=== PATIENT | female | born 1950 | race Caucasian/White ===

== ENCOUNTER 2017-06-10 12:38 | Observation (INO) | payer MEDICARE, OTHER ==
[~2017-06-10] VITALS: Ht 162.6 cm; Wt 70.2 kg
[~2017-06-10 12:38] MED LIST: ACET500 PO; ALEN70 PO; AMIO200 PO; ASPI81CH PO; ASPI81EC PO; ATEN50 PO; ATOR40TA PO; ATOR80 PO; BUPR150T2 PO; CEFTRIAXONE IV; CEPH500 PO; CHOL10002 PO; CLOP75 PO; COLE625 PO; CYCL10 PO; Cartia Xt240 MG PO; Ceftriaxon1 GM/50 ML IV; DIGO.25 PO; DILT120 PO; DOCU100 PO; Desyrel150 MG PO; Desyrel50 MG PO; ETOD400 PO; ETOD500 PO; EZET10 PO; FLUSAL1005 INH; FLUSAL2505 INH; HYDACE5 PO; HYDACE5325 PO; LISI20 PO; LISI5 PO; METO100ER PO; METO50ER PO; MONT10T PO; MULT50FEL PO; NAPR250 PO; NIAC500 PO; OMEP20ER PO; OMEPRAZOLE MAGN20 MG PO; POLY500 PO; PREG25 PO; PROAIR RESPICL90 MCG INH; Ranitidine HCl150 M1 PO; TRAZ100 PO; TRAZ150T57 PO; TRAZ50 PO; WARF2 PO; XARELTO20 MG PO
[2017-06-10 13:57] LABS: BASOPHILS ABSOLUTE AUTO 0.03 K/mm3 (0.00-0.23); BASOPHILS PERCENT AUTO 0 % (0-2); EOSINOPHILS PERCENT AUTO 0 % (0-6); Hematocrit 43.8 % (33.0-51.0); Hemoglobin 14.3 g/dL (11.5-16.0); IMMATURE GRAN ABSOLUTE AUTO 0.04 K/mm3 (0.00-0.10); IMMATURE GRAN PERCENT AUTO 0 % (0-1); LYMPHOCYTES ABSOLUTE AUTO 1.09 K/mm3 (0.84-5.20); LYMPHOCYTES PERCENT AUTO 11 % (21-46); MONOCYTES PERCENT AUTO 10 % (4-13); Mean Corpuscular HGB 28.2 pg (26.0-34.0); Mean Corpuscular HGB Conc 32.6 g/dL (31.5-36.5); Mean Corpuscular Volume 86 fL (80-100); Mean Platelet Volume 9.8 fL (9.1-12.4); NEUTROPHILS ABSOLUTE AUTO 8.27 K/mm3 (1.96-9.15); NEUTROPHILS PERCENT AUTO 79 % (41-73); Platelet Count 236 K/mm3 (150-400); RDW Coefficient Variation 13.9 % (11.7-14.2); RDW Standard Deviation 44.4 fL (35.1-46.3); Red Blood Cell Count 5.07 M/mm3 (3.80-5.20); White Blood Cell Count 10.43 K/mm3 (4.00-11.30)
[2017-06-10 14:17] LABS: Alanine Aminotransfer (ALT/SGP 10 U/L (12-78); Albumin, Blood 3.1 g/dL (3.4-5.0); Albumin/Globulin Ratio 0.6 (0.8-1.8); Alk Phos 111 U/L (50-136); Anion Gap 9 mmol/L (6-16); Aspartate Aminotrans (AST/SGOT 18 U/L (12-37); Bilirubin, Total 1.2 mg/dL (0.1-1.0); Blood Urea Nitrogen 22 mg/dL (8-24); Bun/Creatinine Ratio 27.5 (12.0-20.0); CO2, Blood 28 mmol/L (21-32); Calcium, Blood 8.9 mg/dL (8.5-10.1); Chloride, Blood 99 mmol/L (98-108); Glomerular Filtration Rate >60 (60-); Glucose, Blood 113 mg/dL (70-99); Potassium, Blood 3.3 mmol/L (3.5-5.5); Sodium, Blood 136 mmol/L (136-145); Total Protein, Blood 8.1 g/dL (6.4-8.2)
[2017-06-10] MEDS ORDERED: SERT100 PO (14:44)
[2017-06-10] MEDS ORDERED: COMBIVENT RESPIM4 GM INH (14:45)
[2017-06-10 16:07] LABS: Troponin I <0.015 ng/mL (0.000-0.040)
[2017-06-10 17:48] LABS: Magnesium, Blood 1.4 mg/dL (1.6-2.4)
[2017-06-10 18:09] LABS: Source, Urine Clean Catch
[2017-06-10 18:18] LABS: Appearance, Urine Clear (Clear); Bilirubin, Urine Neg (Neg); Blood, Urine 5+ (Neg); Color, Urine Yellow (P-Yellow); Glucose Qualitative, Urine Neg (Neg); Ketones, Urine 2+ (Neg); Leukocyte Esterase, Urine Neg (Neg); Nitrite, Urine Neg (Neg); Protein, Urine 3+ (Neg); Urobilinogen, Urine NORM (Normal)
[2017-06-10 18:45] LABS: Squamous Epithelial Cells Few /hpf (Few)
[2017-06-10 18:46] LABS: Bacteria Few /hpf; Hyaline Casts 0-2 /lpf (0-2)
[2017-06-11 04:48] LABS: BASOPHILS ABSOLUTE AUTO 0.02 K/mm3 (0.00-0.23); BASOPHILS PERCENT AUTO 0 % (0-2); EOSINOPHILS ABSOLUTE AUTO 0.04 K/mm3 (0.00-0.68); EOSINOPHILS PERCENT AUTO 1 % (0-6); Hemoglobin 12.7 g/dL (11.5-16.0); IMMATURE GRAN ABSOLUTE AUTO 0.02 K/mm3 (0.00-0.10); IMMATURE GRAN PERCENT AUTO 0 % (0-1); LYMPHOCYTES ABSOLUTE AUTO 1.35 K/mm3 (0.84-5.20); LYMPHOCYTES PERCENT AUTO 15 % (21-46); MONOCYTES ABSOLUTE AUTO 1.01 K/mm3 (0.16-1.47); MONOCYTES PERCENT AUTO 12 % (4-13); Mean Corpuscular HGB 28.2 pg (26.0-34.0); Mean Corpuscular HGB Conc 32.6 g/dL (31.5-36.5); Mean Corpuscular Volume 87 fL (80-100); Mean Platelet Volume 10.1 fL (9.1-12.4); NEUTROPHILS ABSOLUTE AUTO 6.37 K/mm3 (1.96-9.15); NEUTROPHILS PERCENT AUTO 72 % (41-73); Platelet Count 225 K/mm3 (150-400); RDW Coefficient Variation 13.9 % (11.7-14.2); RDW Standard Deviation 43.8 fL (35.1-46.3); White Blood Cell Count 8.81 K/mm3 (4.00-11.30)
[2017-06-11 05:09] LABS: Anion Gap 7 mmol/L (6-16); Blood Urea Nitrogen 21 mg/dL (8-24); Bun/Creatinine Ratio 31.2 (12.0-20.0); CO2, Blood 27 mmol/L (21-32); Calcium, Blood 7.9 mg/dL (8.5-10.1); Chloride, Blood 105 mmol/L (98-108); Creatinine, Blood 0.67 mg/dL (0.40-1.00); Glomerular Filtration Rate >60 (60-); Glucose, Blood 115 mg/dL (70-99); Potassium, Blood 3.2 mmol/L (3.5-5.5); Sodium, Blood 139 mmol/L (136-145); Troponin I <0.015 ng/mL (0.000-0.040)
[2017-06-11] MEDS ORDERED: HYDR1TAB94 PO (11:06)
[2017-06-11] MEDS ORDERED: METO25ER PO (11:15)
[2017-09-25] MEDS ORDERED: DILTIAZEM 24HR180 MG PO (14:49)
[2017-09-25] MEDS ORDERED: Advair Hfa 230-12 GM INH (14:49)
[2017-09-25] MEDS ORDERED: VITAMIN B122500 MC1 PO (14:50)
[2017-09-25] MEDS ORDERED: Vitamin D400 UNI1 PO (14:50)
[2018-02-03] MEDS ORDERED: METO25 PO (17:45)
[2018-02-03] MEDS ORDERED: Protonix40 M1 PO (17:47)
[2018-02-03] MEDS ORDERED: Allopurinol100 MG PO (17:51)
[2018-02-03] MEDS ORDERED: AZO CRANBERRY1 EAC1 PO (17:52)
[2018-02-03] MEDS ORDERED: Amiodarone HCl200 MG PO (17:53)
[2018-02-03] MEDS ORDERED: MAGCHL64ER PO (17:54)
[2018-02-03] MEDS ORDERED: HYDR10 PO (17:55)
[2018-02-03] MEDS ORDERED: ONDA4ODT MM (17:56)
[2018-02-03] MEDS ORDERED: PRED10 PO (17:57)
[2018-03-22] MEDS ORDERED: K-Dur20 MEQ PO (23:52)
[2018-04-03] MEDS ORDERED: VITAMIN D22000 UNIT PO (13:52)
[2018-04-03] MEDS ORDERED: MONT10T PO (13:53)
[2018-04-03] MEDS ORDERED: XARELTO20 MG PO (13:53)
[2018-04-03] MEDS ORDERED: SERT100 PO (13:53)
[2018-04-03] MEDS ORDERED: Prilosec Otc20 MG PO (13:53)
[2018-04-03] MEDS ORDERED: ALEN70 PO (13:54)
[2018-04-03] MEDS ORDERED: VITAMIN B122500 MCG PO (13:54)
[2018-04-03] MEDS ORDERED: PREG25 PO (13:54)
[2018-04-03] MEDS ORDERED: PROAIR RESPICL90 MCG INH (13:55)
[2018-04-03] MEDS ORDERED: Metoprolol Succ25 MG PO (13:55)
[2018-04-03] MEDS ORDERED: TRAZ150T57 PO (13:56)
[2018-04-03] MEDS ORDERED: ACET325 (13:56)
[2018-04-03] MEDS ORDERED: Pentoxifylline400 MG PO (13:56)
[2018-04-03] MEDS ORDERED: LOSA25 (13:57)
[2018-04-03] MEDS ORDERED: FURO20 PO (13:57)
[2018-04-03] MEDS ORDERED: Amiodarone HCl200 MG PO (13:57)
[2018-04-03] MEDS ORDERED: ATOR80 PO (13:57)
[2018-04-03] MEDS ORDERED: K-Dur20 MEQ PO (13:58)
[2018-04-03] MEDS ORDERED: ALLO100 PO (13:58)
== END 2017-06-11 11:38 | disposition home or self-care (01) ==
LOC: ER 12:38 → PCU 12:39 → ER 18:07 → PCU 20:00
PROVIDERS: Internal Medicine; Physician Assistant
DX: I48.91 Unspecified atrial fibrillation (principal); M54.9 Dorsalgia, unspecified; E87.1 Hypo-osmolality and hyponatremia; E83.42 Hypomagnesemia; J44.9 Chronic obstructive pulmonary disease, unspecified; I11.9 Hypertensive heart disease without heart failure; I73.9 Peripheral vascular disease, unspecified; Z87.891 Personal history of nicotine dependence; Z95.2 Presence of prosthetic heart valve; Z95.1 Presence of aortocoronary bypass graft; Z88.5 Allergy status to narcotic agent; Z88.8 Allergy status to other drugs, medicaments and biological substances; Z79.899 Other long term (current) drug therapy; Z79.01 Long term (current) use of anticoagulants; Z98.890 Other specified postprocedural states; Z23 Encounter for immunization
CPT/HCPCS: 36415; 71045; 80048; 80053; 81001; 83735; 84484; 85025; 93005; 93010; 94760; 96361; 96365; 96375; 96376; 99285; G0008; G0378; J3475; J7030; Q2038

== ENCOUNTER 2017-07-15 21:10 | Inpatient (IN) | payer MEDICARE, OTHER ==
[~2017-07-15] VITALS: Ht 160 cm; Wt 70.8 kg
[~2017-07-15 21:10] MED LIST changes: +COMBIVENT RESPIM4 GM INH; +HYDR1TAB94 PO; +METO25ER PO; +SERT100 PO
[2017-07-15 21:41] LABS: BASOPHILS ABSOLUTE AUTO 0.06 K/mm3 (0.00-0.23); BASOPHILS PERCENT AUTO 1 % (0-2); EOSINOPHILS ABSOLUTE AUTO 0.06 K/mm3 (0.00-0.68); EOSINOPHILS PERCENT AUTO 1 % (0-6); Hematocrit 40.7 % (33.0-51.0); Hemoglobin 12.6 g/dL (11.5-16.0); IMMATURE GRAN ABSOLUTE AUTO 0.03 K/mm3 (0.00-0.10); IMMATURE GRAN PERCENT AUTO 1 % (0-1); LYMPHOCYTES ABSOLUTE AUTO 1.61 K/mm3 (0.84-5.20); LYMPHOCYTES PERCENT AUTO 25 % (21-46); MONOCYTES ABSOLUTE AUTO 0.63 K/mm3 (0.16-1.47); MONOCYTES PERCENT AUTO 10 % (4-13); Mean Corpuscular HGB 27.6 pg (26.0-34.0); Mean Corpuscular Volume 89 fL (80-100); Mean Platelet Volume 10.6 fL (9.1-12.4); NEUTROPHILS ABSOLUTE AUTO 4.06 K/mm3 (1.96-9.15); NEUTROPHILS PERCENT AUTO 63 % (41-73); Platelet Count 258 K/mm3 (150-400); RDW Coefficient Variation 15.7 % (11.7-14.2); RDW Standard Deviation 50.5 fL (35.1-46.3); Red Blood Cell Count 4.57 M/mm3 (3.80-5.20); White Blood Cell Count 6.45 K/mm3 (4.00-11.30)
[2017-07-15 22:03] LABS: Alanine Aminotransfer (ALT/SGP 21 U/L (12-78); Albumin, Blood 3.2 g/dL (3.4-5.0); Albumin/Globulin Ratio 0.9 (0.8-1.8); Alk Phos 116 U/L (50-136); Anion Gap 11 mmol/L (6-16); Aspartate Aminotrans (AST/SGOT 24 U/L (12-37); Blood Urea Nitrogen 25 mg/dL (8-24); Bun/Creatinine Ratio 24.8 (12.0-20.0); CO2, Blood 24 mmol/L (21-32); Calcium, Blood 8.5 mg/dL (8.5-10.1); Chloride, Blood 106 mmol/L (98-108); Creatinine, Blood 1.01 mg/dL (0.40-1.00); Globulin, Blood 3.7 g/dL (2.2-4.0); Glomerular Filtration Rate 58 (60-); Glucose, Blood 169 mg/dL (70-99); Magnesium, Blood 1.8 mg/dL (1.6-2.4); Potassium, Blood 3.8 mmol/L (3.5-5.5); Sodium, Blood 141 mmol/L (136-145); Total Protein, Blood 6.9 g/dL (6.4-8.2); Troponin I <0.015 ng/mL (0.000-0.040)
[2017-07-15 22:47] LABS: International Normalized Ratio 1.45; Prothrombin Time Results 15.3 Sec (9.7-11.5)
[2017-07-16] MEDS ORDERED: XARELTO15 MG PO (00:32)
[2017-07-16 02:21] LABS: Source, Urine Catheter
[2017-07-16 02:28] LABS: Appearance, Urine Hazy (Clear); Bilirubin, Urine 1+ (Neg); Blood, Urine 5+ (Neg); Color, Urine Amber (P-Yellow); Glucose Qualitative, Urine Neg (Neg); Ketones, Urine 1+ (Neg); Leukocyte Esterase, Urine 1+ (Neg); Nitrite, Urine Neg (Neg); Protein, Urine 4+ (Neg); Specific Gravity, Urine 1.025 (1.003-1.022); Urobilinogen, Urine 1+ (Normal)
[2017-07-16 02:30] LABS: Amorphous Mod (0-Heavy); Bacteria Mod /hpf; Squamous Epithelial Cells Rare /hpf (Few); White Blood Cells, Urine 0-2 /hpf (0-5)
[2017-07-16 02:31] LABS: Hyaline Casts 0-2 /lpf (0-2)
[2017-07-16 03:49] LABS: BASOPHILS ABSOLUTE AUTO 0.05 K/mm3 (0.00-0.23); BASOPHILS PERCENT AUTO 1 % (0-2); EOSINOPHILS PERCENT AUTO 0 % (0-6); Hematocrit 41.2 % (33.0-51.0); IMMATURE GRAN ABSOLUTE AUTO 0.02 K/mm3 (0.00-0.10); IMMATURE GRAN PERCENT AUTO 0 % (0-1); LYMPHOCYTES ABSOLUTE AUTO 0.91 K/mm3 (0.84-5.20); LYMPHOCYTES PERCENT AUTO 14 % (21-46); MONOCYTES ABSOLUTE AUTO 0.25 K/mm3 (0.16-1.47); MONOCYTES PERCENT AUTO 4 % (4-13); Mean Corpuscular HGB 27.5 pg (26.0-34.0); Mean Corpuscular HGB Conc 31.6 g/dL (31.5-36.5); Mean Corpuscular Volume 87 fL (80-100); Mean Platelet Volume 11.7 fL (9.1-12.4); NEUTROPHILS ABSOLUTE AUTO 5.31 K/mm3 (1.96-9.15); NEUTROPHILS PERCENT AUTO 81 % (41-73); NRBC ABSOLUTE 0.02 K/mm3 (0.00-0.02); NRBC Auto 0.3 /100 WBC (0.0-0.2); Platelet Count 289 K/mm3 (150-400); RDW Coefficient Variation 15.8 % (11.7-14.2); RDW Standard Deviation 49.7 fL (35.1-46.3); Red Blood Cell Count 4.72 M/mm3 (3.80-5.20); White Blood Cell Count 6.54 K/mm3 (4.00-11.30)
[2017-07-16 05:35] LABS: Anion Gap 12 mmol/L (6-16); Blood Urea Nitrogen 26 mg/dL (8-24); Bun/Creatinine Ratio 30.6 (12.0-20.0); CO2, Blood 22 mmol/L (21-32); Calcium, Blood 8.8 mg/dL (8.5-10.1); Chloride, Blood 106 mmol/L (98-108); Creatinine, Blood 0.85 mg/dL (0.40-1.00); Glomerular Filtration Rate >60 (60-); Glucose, Blood 153 mg/dL (70-99); Magnesium, Blood 2.1 mg/dL (1.6-2.4); Potassium, Blood 4.1 mmol/L (3.5-5.5); Sodium, Blood 140 mmol/L (136-145)
[2017-07-17] MEDS ORDERED: Pacerone100 MG PO (12:52)
[2017-07-17] MEDS ORDERED: FURO20 PO (12:53)
[2017-09-25] MEDS ORDERED: Advair Hfa 230-12 GM INH (14:49)
[2017-09-25] MEDS ORDERED: DILTIAZEM 24HR180 MG PO (14:49)
[2017-09-25] MEDS ORDERED: Vitamin D400 UNI1 PO (14:50)
[2017-09-25] MEDS ORDERED: VITAMIN B122500 MC1 PO (14:50)
[2018-02-03] MEDS ORDERED: METO25 PO (17:45)
[2018-02-03] MEDS ORDERED: Protonix40 M1 PO (17:47)
[2018-02-03] MEDS ORDERED: Allopurinol100 MG PO (17:51)
[2018-02-03] MEDS ORDERED: AZO CRANBERRY1 EAC1 PO (17:52)
[2018-02-03] MEDS ORDERED: Amiodarone HCl200 MG PO (17:53)
[2018-02-03] MEDS ORDERED: MAGCHL64ER PO (17:54)
[2018-02-03] MEDS ORDERED: HYDR10 PO (17:55)
[2018-02-03] MEDS ORDERED: ONDA4ODT MM (17:56)
[2018-02-03] MEDS ORDERED: PRED10 PO (17:57)
[2018-03-22] MEDS ORDERED: K-Dur20 MEQ PO (23:52)
[2018-04-03] MEDS ORDERED: VITAMIN D22000 UNIT PO (13:52)
[2018-04-03] MEDS ORDERED: XARELTO20 MG PO (13:53)
[2018-04-03] MEDS ORDERED: MONT10T PO (13:53)
[2018-04-03] MEDS ORDERED: SERT100 PO (13:53)
[2018-04-03] MEDS ORDERED: Prilosec Otc20 MG PO (13:53)
[2018-04-03] MEDS ORDERED: ALEN70 PO (13:54)
[2018-04-03] MEDS ORDERED: PREG25 PO (13:54)
[2018-04-03] MEDS ORDERED: VITAMIN B122500 MCG PO (13:54)
[2018-04-03] MEDS ORDERED: PROAIR RESPICL90 MCG INH (13:55)
[2018-04-03] MEDS ORDERED: Metoprolol Succ25 MG PO (13:55)
[2018-04-03] MEDS ORDERED: ACET325 (13:56)
[2018-04-03] MEDS ORDERED: TRAZ150T57 PO (13:56)
[2018-04-03] MEDS ORDERED: Pentoxifylline400 MG PO (13:56)
[2018-04-03] MEDS ORDERED: ATOR80 PO (13:57)
[2018-04-03] MEDS ORDERED: FURO20 PO (13:57)
[2018-04-03] MEDS ORDERED: Amiodarone HCl200 MG PO (13:57)
[2018-04-03] MEDS ORDERED: LOSA25 (13:57)
[2018-04-03] MEDS ORDERED: K-Dur20 MEQ PO (13:58)
[2018-04-03] MEDS ORDERED: ALLO100 PO (13:58)
== END 2017-07-17 15:49 | disposition home or self-care (01) | DRG 308 ==
LOC: ER 21:10 → ICUW 23:55 → ICUE 23:55 → PCU 07-16 20:27
PROVIDERS: Emergency Medicine; Internal Medicine
PROC: 5A2204Z Restoration of Cardiac Rhythm, Single (ICD-10-PCS; principal; 2017-07-16)
DX: I48.91 Unspecified atrial fibrillation (principal); I50.31 Acute diastolic (congestive) heart failure; J96.01 Acute respiratory failure with hypoxia; J44.9 Chronic obstructive pulmonary disease, unspecified; Z95.1 Presence of aortocoronary bypass graft; I11.0 Hypertensive heart disease with heart failure; I25.10 Atherosclerotic heart disease of native coronary artery without angina pectoris; I73.9 Peripheral vascular disease, unspecified; I35.0 Nonrheumatic aortic (valve) stenosis; Z95.2 Presence of prosthetic heart valve; Z88.5 Allergy status to narcotic agent; Z88.8 Allergy status to other drugs, medicaments and biological substances; Z79.01 Long term (current) use of anticoagulants; Z79.83 Long term (current) use of bisphosphonates; Z79.899 Other long term (current) drug therapy; Z87.891 Personal history of nicotine dependence
CPT/HCPCS: 51702; 51703; 71046; 80048; 80053; 81001; 83735; 83880; 84484; 85025; 85610; 85730; 87086; 93005; 93010; 94640; 94660; 94762; 96374; 96375; 96376; 99291; 99292; C1751; J0282; J1940; J2250; J2930; J3010; J3475; J7060

== ENCOUNTER → 2017-07-23 | Outpatient (CLI) | payer MEDICARE, OTHER ==
[~2017-07-23] MED LIST changes: +ALBU90OI6 INH; +FURO20 PO; -PROAIR RESPICL90 MCG INH; +Pacerone100 MG PO
[2017-07-23 18:20] LABS: Blood, Urine 5+ (Neg); Glucose Qualitative, Urine Neg (Neg); Ketones, Urine 1+ (Neg); Leukocyte Esterase, Urine 2+ (Neg); Nitrite, Urine Neg (Neg); Protein, Urine 3+ (Neg); Urobilinogen, Urine 1+ (Normal)
[2017-07-23 18:41] LABS: Appearance, Urine Clear (Clear); Color, Urine Yellow (P-Yellow)
[2017-07-23 18:43] LABS: Bacteria Many /hpf; Squamous Epithelial Cells Mod /hpf (Few)
== END ==
LOC: LAB 16:15 → LAB SHORT 16:15
PROVIDERS: Family Medicine
DX: R35.0 Frequency of micturition (principal)
CPT/HCPCS: 81001; 87077; 87086; 87186

== ENCOUNTER 2017-10-05 09:48 | Day surgery (SDC) | payer MEDICARE, OTHER ==
[~2017-10-05 09:48] MED LIST changes: +Advair Hfa 230-12 GM INH; +DILTIAZEM 24HR180 MG PO; +VITAMIN B122500 MC1 PO; +Vitamin D400 UNI1 PO
[2017-10-05] MEDS ORDERED: ATOR80 PO (10:22)
[2017-10-05] MEDS ORDERED: DILT180 PO (10:22)
[2017-10-05] MEDS ORDERED: ACET500 PO (10:23)
== END 2017-10-05 22:58 | disposition home or self-care (01) ==
LOC: ORSCMMR 09:48 → ORD 11:15 → ORSCMMR 11:15
PROVIDERS: Surgery
PROC: 0WUF0JZ Supplement Abdominal Wall with Synthetic Substitute, Open Approach (ICD-10-PCS; principal; 2017-10-05 11:15)
DX: K43.9 Ventral hernia without obstruction or gangrene (principal); J44.9 Chronic obstructive pulmonary disease, unspecified; Z99.81 Dependence on supplemental oxygen; E78.5 Hyperlipidemia, unspecified; K21.9 Gastro-esophageal reflux disease without esophagitis; I10 Essential (primary) hypertension; Z87.891 Personal history of nicotine dependence; Z79.01 Long term (current) use of anticoagulants; Z79.899 Other long term (current) drug therapy
CPT/HCPCS: C1781; J0690; J1100; J2250; J2370; J2405; J2710; J3010; J7120

== ENCOUNTER → 2018-01-24 | Outpatient (CLI) | payer MEDICARE, OTHER ==
[~2018-01-24] MED LIST changes: +Cleocin HCl300 MG PO; +DILT180 PO
== END | disposition home or self-care (01) ==
LOC: LAB SHORT 16:07 → LAB EV 16:07
DX: N39.0 Urinary tract infection, site not specified (principal)
CPT/HCPCS: 87086

== ENCOUNTER 2018-01-26 19:09 | Emergency (ER) | payer MEDICARE ==
[~2018-01-26] VITALS: Ht 162.6 cm; Wt 54.4 kg
[~2018-01-26 19:09] MED LIST changes: -Cleocin HCl300 MG PO
[2018-01-26 21:27] LABS: BASOPHILS ABSOLUTE AUTO 0.02 K/mm3 (0.00-0.23); BASOPHILS PERCENT AUTO 0 % (0-2); EOSINOPHILS PERCENT AUTO 0 % (0-6); Hematocrit 38.2 % (33.0-51.0); Hemoglobin 13.2 g/dL (11.5-16.0); IMMATURE GRAN ABSOLUTE AUTO 0.06 K/mm3 (0.00-0.10); IMMATURE GRAN PERCENT AUTO 0 % (0-1); LYMPHOCYTES ABSOLUTE AUTO 1.18 K/mm3 (0.84-5.20); LYMPHOCYTES PERCENT AUTO 8 % (21-46); MONOCYTES PERCENT AUTO 8 % (4-13); Mean Corpuscular HGB 31.1 pg (26.0-34.0); Mean Corpuscular HGB Conc 34.6 g/dL (31.5-36.5); Mean Corpuscular Volume 90 fL (80-100); Mean Platelet Volume 9.9 fL (9.1-12.4); NEUTROPHILS ABSOLUTE AUTO 12.01 K/mm3 (1.96-9.15); NEUTROPHILS PERCENT AUTO 84 % (41-73); Platelet Count 315 K/mm3 (150-400); RDW Coefficient Variation 13.8 % (11.7-14.2); RDW Standard Deviation 45.8 fL (35.1-46.3); Red Blood Cell Count 4.24 M/mm3 (3.80-5.20); White Blood Cell Count 14.37 K/mm3 (4.00-11.30)
[2018-01-26] MEDS ORDERED: Cleocin HCl300 MG PO (22:06)
== END 2018-01-26 22:21 | disposition home or self-care (01) ==
LOC: ER 19:09
PROVIDERS: Physician Assistant
DX: M19.031 Primary osteoarthritis, right wrist (principal); L03.113 Cellulitis of right upper limb; I10 Essential (primary) hypertension; Z87.891 Personal history of nicotine dependence
CPT/HCPCS: 73110; 76882; 85025; 85651; 99284-25

== ENCOUNTER 2018-04-11 10:40 | Day surgery (SDC) | payer MEDICARE, OTHER ==
[~2018-04-11] VITALS: Ht 167.6 cm; Wt 56.7 kg
[~2018-04-11 10:40] MED LIST changes: +ACET325; -ALBU90OI6 INH; +ALLO100 PO; +AZO CRANBERRY1 EAC1 PO; +Allopurinol100 MG PO; +Amiodarone HCl200 MG PO; +Cleocin HCl300 MG PO; +HYDR10 PO; +K-Dur20 MEQ PO; +LOSA25; +MAGCHL64ER PO; +METO25 PO; +Metoprolol Succ25 MG PO; +ONDA4ODT MM; +PRED10 PO; +PROAIR RESPICL90 MCG INH; +Pentoxifylline400 MG PO; +Prilosec Otc20 MG PO; +Protonix40 M1 PO; +VITAMIN B122500 MCG PO; +VITAMIN D22000 UNIT PO; +XARELTO15 MG PO
== END 2018-04-11 13:13 | disposition home or self-care (01) ==
LOC: ORSCSDS 10:40
PROVIDERS: Internal Medicine Gastroenterology
PROC: 0D738ZZ Dilation of Lower Esophagus, Via Natural or Artificial Opening Endoscopic (ICD-10-PCS; principal; 2018-04-11 12:00)
DX: K22.2 Esophageal obstruction (principal); Z87.11 Personal history of peptic ulcer disease; I10 Essential (primary) hypertension; E78.5 Hyperlipidemia, unspecified; J44.9 Chronic obstructive pulmonary disease, unspecified; I25.10 Atherosclerotic heart disease of native coronary artery without angina pectoris; I48.91 Unspecified atrial fibrillation; Z79.01 Long term (current) use of anticoagulants; Z79.899 Other long term (current) drug therapy
CPT/HCPCS: J2250; J7120

== ENCOUNTER 2018-07-30 13:21 | Day surgery (SDC) | payer MEDICARE, OTHER ==
[~2018-07-30] VITALS: Ht 162.6 cm; Wt 52.7 kg
[~2018-07-30 13:21] MED LIST changes: +VITAMIN B-121000 MCG PO
[2018-07-30] MEDS ORDERED: XARELTO15 MG (13:54)
--- NOTE | 2018-07-30 14:03 | NUR ---
07/30/[address] AWARE THAT PT DRANK COFFEE WITH NON DAIRY MILK AT 0930 THIS MORNING
== END 2018-07-30 16:11 | disposition home or self-care (01) ==
LOC: ORSCSDS 13:21
PROVIDERS: Internal Medicine Gastroenterology
PROC: 0D758ZZ Dilation of Esophagus, Via Natural or Artificial Opening Endoscopic (ICD-10-PCS; principal; 2018-07-30 14:00)
DX: R13.10 Dysphagia, unspecified (principal); Q45.8 Other specified congenital malformations of digestive system; Z87.11 Personal history of peptic ulcer disease; E78.5 Hyperlipidemia, unspecified; D64.9 Anemia, unspecified; I25.10 Atherosclerotic heart disease of native coronary artery without angina pectoris; I48.91 Unspecified atrial fibrillation; I10 Essential (primary) hypertension; Z87.891 Personal history of nicotine dependence; Z79.01 Long term (current) use of anticoagulants; Z79.899 Other long term (current) drug therapy
CPT/HCPCS: J2704; J7120

== ENCOUNTER 2018-08-28 07:01 | Day surgery (SDC) | payer MEDICARE, OTHER ==
[~2018-08-28] VITALS: Ht 162.6 cm; Wt 52.7 kg
[~2018-08-28 07:01] MED LIST changes: +XARELTO15 MG
== END 2018-08-28 09:29 | disposition home or self-care (01) ==
LOC: ORSCSDS 07:01
PROVIDERS: Ophthalmology
PROC: 08RK3JZ Replacement of Left Lens with Synthetic Substitute, Percutaneous Approach (ICD-10-PCS; principal; 2018-08-28 08:30)
DX: H25.12 Age-related nuclear cataract, left eye (principal); I12.9 Hypertensive chronic kidney disease with stage 1 through stage 4 chronic kidney disease, or unspecified chronic kidney disease; N18.3 Chronic kidney disease, stage 3 (moderate); J44.9 Chronic obstructive pulmonary disease, unspecified; Z87.891 Personal history of nicotine dependence; Z99.81 Dependence on supplemental oxygen; Z79.899 Other long term (current) drug therapy
CPT/HCPCS: J2001; J2250; J3010; J3301; J7120; V2632

== ENCOUNTER 2018-10-23 08:23 | Day surgery (SDC) | payer MEDICARE, OTHER ==
[~2018-10-23] VITALS: Ht 162.6 cm; Wt 51.4 kg
--- NOTE | 2018-10-23 09:20 | NUR ---
10/23/18 0920 Mavis Silverio 2 IV ATTEMPTS BY SHYANNE, 1ST IN LFA INFILTRATED, 2ND IN L WRIST WAS SUCCESSFUL
== END 2018-10-23 10:47 | disposition home or self-care (01) ==
LOC: ORSCSDS 08:23
PROVIDERS: Ophthalmology
PROC: 08RJ3JZ Replacement of Right Lens with Synthetic Substitute, Percutaneous Approach (ICD-10-PCS; principal; 2018-10-23 10:00)
DX: H25.11 Age-related nuclear cataract, right eye (principal); J44.9 Chronic obstructive pulmonary disease, unspecified; I25.10 Atherosclerotic heart disease of native coronary artery without angina pectoris; Z79.899 Other long term (current) drug therapy; Z87.891 Personal history of nicotine dependence
CPT/HCPCS: J2001; J2250; J3301; J7120; V2632

== ENCOUNTER 2019-07-07 07:01 | Inpatient (IN) | payer MEDICARE ==
[~2019-07-07] VITALS: Ht 162.6 cm; Wt 53.8 kg
[2019-07-07 08:28] LABS: BASOPHILS ABSOLUTE AUTO 0.07 K/mm3 (0.00-0.23); BASOPHILS PERCENT AUTO 1 % (0-2); EOSINOPHILS PERCENT AUTO 0 % (0-6); Hematocrit 36.4 % (33.0-51.0); Hemoglobin 10.3 g/dL (11.5-16.0); IMMATURE GRAN ABSOLUTE AUTO 0.18 K/mm3 (0.00-0.10); IMMATURE GRAN PERCENT AUTO 2 % (0-1); LYMPHOCYTES ABSOLUTE AUTO 0.35 K/mm3 (0.84-5.20); LYMPHOCYTES PERCENT AUTO 3 % (21-46); MONOCYTES ABSOLUTE AUTO 0.32 K/mm3 (0.16-1.47); MONOCYTES PERCENT AUTO 3 % (4-13); Mean Corpuscular HGB 22.1 pg (26.0-34.0); Mean Corpuscular HGB Conc 28.3 g/dL (31.5-36.5); Mean Corpuscular Volume 78 fL (80-100); Mean Platelet Volume 9.8 fL (9.1-12.4); NEUTROPHILS ABSOLUTE AUTO 10.96 K/mm3 (1.96-9.15); NEUTROPHILS PERCENT AUTO 92 % (41-73); NRBC ABSOLUTE 0.06 K/mm3 (0.00-0.02); NRBC Auto 0.5 /100 WBC (0.0-0.2); Platelet Count 419 K/mm3 (150-400); RDW Coefficient Variation 21.5 % (11.7-14.2); Red Blood Cell Count 4.67 M/mm3 (3.80-5.20); White Blood Cell Count 11.88 K/mm3 (4.00-11.30)
[2019-07-07 08:31] LABS: Albumin, Blood 2.4 g/dL (3.4-5.0); Albumin/Globulin Ratio 0.6 (0.8-1.8); Bilirubin, Total 0.8 mg/dL (0.1-1.0); Bun/Creatinine Ratio 13.2 (12.0-20.0); Calcium, Blood 8.1 mg/dL (8.5-10.1); Creatinine, Blood 2.95 mg/dL (0.40-1.00); Globulin, Blood 4.3 g/dL (2.2-4.0); Potassium, Blood 3.2 mmol/L (3.5-5.5); Total Protein, Blood 6.7 g/dL (6.4-8.2)
[2019-07-07] MEDS ORDERED: Pentoxifylline400 MG PO (09:04)
[2019-07-07 09:38] LABS: Adenovirus Not Detected (NOT DETECT); Bordetella pertussis Not Detected (NOT DETECT); Chlamydophila pneumoniae Not Detected (NOT DETECT); Coronavirus 229E Not Detected (NOT DETECT); Coronavirus HKU1 Detected (NOT DETECT); Coronavirus NL63 Not Detected (NOT DETECT); Coronavirus OC43 Not Detected (NOT DETECT); Human Metapneumovirus Not Detected (NOT DETECT); Human Rhinovirus/Enterovirus Not Detected (NOT DETECT); Influenza A/2009-H1 Not Detected (NOT DETECT); Influenza A/H1 Not Detected (NOT DETECT); Influenza A/H3 Not Detected (NOT DETECT); Influenza B Not Detected (NOT DETECT); Mycoplasma pneumoniae Not Detected (NOT DETECT); Parainfluenza Virus 1 Not Detected (NOT DETECT); Parainfluenza Virus 2 Not Detected (NOT DETECT); Parainfluenza Virus 3 Not Detected (NOT DETECT); Parainfluenza Virus 4 Not Detected (NOT DETECT); Respiratory Syncytial Virus Not Detected (NOT DETECT)
--- NOTE | 2019-07-07 11:30 | NUR ---
ASSUMED CARE OF PT UPON ARRIVAL TO ICU Pt arrived to ICU 11 at 1110 from emergency department. Pt arrived accompanied by Viktoriya CABRAL. Pt transferred from ED [facility] to ICU bed using slider sheet and 4 staff. Pt arrived wearing 6 LPM NC. Pt states her baseline O2 use is 4 LPM NC. Atrial flutter, rate 70s. Hypotensive. Afebrile. A&O x 2. Follows commands. Able to verbalize needs. Forgetful. Has difficulty answering questions. One peripheral IV access. Plan to obtain additional access.
--- NOTE | 2019-07-07 11:32 | NUR ---
CALL PLACED TO DR DIAZ This RN placed call to provider to update on current BP and inquire if he would like secondary school teacher consultation. Provider states he will consult secondary school teacher. Dr Diaz states plan to see pt in unit shortly.
--- NOTE | 2019-07-07 12:10 | NUR ---
DR COOPER IN TO SEE PT Provider at bedside. Discussing current BP. Plan for additional IV fluids and reassess. Provider states PICC line may be placed to prepare for potential vasopressors.
[2019-07-07 13:38] LABS: Source, Urine Catheter
[2019-07-07 13:41] LABS: Bilirubin, Urine Neg (Neg); Blood, Urine 5+ (Neg); Glucose Qualitative, Urine Neg (Neg); Ketones, Urine Neg (Neg); Leukocyte Esterase, Urine 1+ (Neg); Nitrite, Urine Neg (Neg); Protein, Urine 3+ (Neg); Urobilinogen, Urine NORM (Normal)
[2019-07-07 13:55] LABS: Appearance, Urine Cloudy (Clear); Color, Urine Yellow (P-Yellow)
[2019-07-07 13:59] LABS: Amorphous Heavy (0-Heavy); Bacteria Mod /hpf
[2019-07-07 14:00] LABS: Squamous Epithelial Cells Rare /hpf (Few)
[2019-07-07 14:25] LABS: International Normalized Ratio 1.38; Prothrombin Time Results 14.5 Sec (9.7-11.5)
[2019-07-07 14:37] LABS: Bun/Creatinine Ratio 12.2 (12.0-20.0); Calcium, Blood 6.5 mg/dL (8.5-10.1); Creatinine, Blood 2.78 mg/dL (0.40-1.00); Magnesium, Blood 1.6 mg/dL (1.6-2.4); Potassium, Blood 2.9 mmol/L (3.5-5.5)
--- NOTE | 2019-07-07 15:02 | NUR ---
DR TAFOYA IN TO SEE PT Discussed most recent lab results. New orders received. Changed rate of IV fluids. Plan to give IV potassium and recheck at 1900.
[2019-07-07 15:17] LABS: PCO2 Arterial 42.3 mmHg (35-45); PO2 Arterial 57.9 mmHg (80-100); pH Blood Arterial 7.26 (7.35-7.45)
--- NOTE | 2019-07-07 15:38 | NUR ---
Echocardiogram completed.
--- NOTE | 2019-07-07 18:11 | NUR ---
SUMMARY At this time, pt on BiPAP 12/10 and 80% FiO2. Pt's supplemental O2 requirement gradually increased from 6 LPM NC to 15 LPM oxymizer. Placed on BiPAP as pt's SpO2 levels were lower than 90%. At this time, RR 22-24. Breathing appeared even and unlabored, no accessory muscle use noted. Pt has a loose, moist cough. Pt reports producing yellow sputum, however pt has not produced any sputum since arrival to ICU. Plans to send sputum sample when pt provides one. HR 70s-80, atrial flutter with bundle branch block. Pt was on 2 mcg/min levophed and 0.04 units/min vasopressin, however these are currently on standby as pt is no longer hypotensive. Pt has fan catheter in place for strict measurement of fluid intake and output. Producing small amounts of cloudy allie urine. Pt had smear bowel movement this shift. Pt reports diarrhea at home. Pt has been NPO except for small sips of water. Updates given to pt's daughter Gina Phipps [phone]. Daughter aware of hospital policy restricting two visitors per day. Discussed that pt is currently being tested for COVID-19 and is wearing a BiPAP, therefore it is unsafe for people to enter the room without a properly fitted N-95 mask. This RN also discouraged family members from same household for visiting, as pt reports there are seven members in her household and some of them are also sick. Pt's daughter verbalized understanding of necessity of visitor restrictions. Will continue to closely monitor pt until care handoff and bedside report with oncoming RN.
--- NOTE | 2019-07-07 19:00 | NUR ---
ASSUMED CARE NOTE: ASSUMED CARE OF PT @ 190, RECEVIED REPORT FROM MICHAEL CABRAL. PT IS ALERT AND ORIENTEDX2, UNABLE TO STATE TIME/PLACE. PT IS A POOR HISTORIAN AND IS CONFUSED, HOWEVER, SHE IS ABLE TO FOLLOW DIRECTIONS. PT IS ON BIPAP WITH SETTINGS @ 12/8, FIO2 70%, SPO2 @ 93, RR 22-30. PT IS AFEBRILE AT THIS TIME. PT IN A-FLUTTER WITH HR IN THE 70'S. PT DENIES ANY PAIN AT THIS TIME. BOWEL TONES HEARD IN ALL FOUR QUADRANTS. MADRIGAL PATENT AND DRAINING RONNIE CLOUDY URINE. STRONG DISTAL PULSES IN ALL EXTREMITIES. BED AT LOWEST LEVEL, CALL LIGHT WITHIN REACH. WILL CONTINUE TO ASSESS PT T/O SHIFT.
--- NOTE | 2019-07-07 19:21 | NUR ---
URINE OUTPUT Only 60 mL of urine output shift shift.
--- NOTE | 2019-07-07 20:38 | NUR ---
PT IS TAKING BIPAP MASK OFF, SPO2 DECREASED TO 83%. PT IS ANXIOUS AND STATES " I DO NOT WANT THE MASK, I CANNOT BREATH". PT WAS EDUCATED ON WHY THE BIPAP IS NEEDED, AND WHY IT SHOULD REMAIN ON. PT WOULD LEAVE ON MASK FOR A FEW MINUTES AND THEN TAKE IT OFF ONCE AGAIN. BILAT SOFT WRIST RESTRAINTS WILL BE PLACED, IF NEEDED FOR PROPER OXYGENATION.
--- NOTE | 2019-07-07 21:42 | NUR ---
CALLED REGARDING [facility] HE REQUESTED. NO NEW ORDERS
--- NOTE | 2019-07-07 21:47 | NUR ---
CONFIRMED HEPRAIN ORDER AND RATE WITH JUDY CABRAL.
--- NOTE | 2019-07-07 21:57 | NUR ---
CALLED REGARDING, PT NOT TOLERATING BIPAP, AND HER MULTIPLE ATTEMPTS ATTEMPTING TO TAKE OFF MASK. ORDERS GIVEN TO START PRECEDEX DRIP FOR BIPAP COMPLIANCE
--- NOTE | 2019-07-08 00:24 | NUR ---
RESTARTED LEVOPHED DUE TO LOW PRESSURE AND MAP LESS THAN 60
--- NOTE | 2019-07-08 02:47 | NUR ---
UPDATE: VASOPRESSIN IS NOT STARTED 0.04UNITS/MIN, AND LEVOPHED IS AT 10MCG/KG/MIN. PT IS DROWSY, HOWEVER IS ABLE TO AWAKEN TO VERBAL STIMULI.
[2019-07-08 04:17] LABS: Hematocrit 28.3 % (33.0-51.0); Hemoglobin 8.3 g/dL (11.5-16.0); Mean Corpuscular HGB 22.3 pg (26.0-34.0); Mean Corpuscular HGB Conc 29.3 g/dL (31.5-36.5); Mean Corpuscular Volume 76 fL (80-100); Mean Platelet Volume 9.8 fL (9.1-12.4); NRBC ABSOLUTE 0.05 K/mm3 (0.00-0.02); NRBC Auto 0.5 /100 WBC (0.0-0.2); Platelet Count 335 K/mm3 (150-400); RDW Coefficient Variation 21.2 % (11.7-14.2); Red Blood Cell Count 3.72 M/mm3 (3.80-5.20); White Blood Cell Count 9.59 K/mm3 (4.00-11.30)
[2019-07-08 04:36] LABS: Alanine Aminotransfer (ALT/SGP 213 U/L (12-78); Albumin, Blood 1.5 g/dL (3.4-5.0); Alk Phos 80 U/L (50-136); Anion Gap 9 mmol/L (6-16); Aspartate Aminotrans (AST/SGOT 681 U/L (12-37); Bilirubin, Total 0.7 mg/dL (0.1-1.0); Blood Urea Nitrogen 39 mg/dL (8-24); Bun/Creatinine Ratio 12.9 (12.0-20.0); CO2, Blood 21 mmol/L (21-32); Calcium, Blood 7.5 mg/dL (8.5-10.1); Chloride, Blood 108 mmol/L (98-108); Creatinine, Blood 3.03 mg/dL (0.40-1.00); Glomerular Filtration Rate 16 (60-); Glucose, Blood 96 mg/dL (70-99); Magnesium, Blood 1.5 mg/dL (1.6-2.4); Phosphorus, Blood 3.7 mg/dL (2.5-4.9); Potassium, Blood 3.4 mmol/L (3.5-5.5); Sodium, Blood 138 mmol/L (136-145); Vancomycin, Random 14.8 ug/mL
[2019-07-08 04:45] LABS: Albumin/Globulin Ratio 0.5 (0.8-1.8)
[2019-07-08 04:48] LABS: Total Protein, Blood 4.5 g/dL (6.4-8.2)
[2019-07-08 05:02] LABS: PCO2 Arterial 36.1 mmHg (35-45); PO2 Arterial 66.4 mmHg (80-100); pH Blood Arterial 7.37 (7.35-7.45)
--- NOTE | 2019-07-08 05:36 | NUR ---
SHIFT SUMMARY: PT HAD TO BE PLACED ON PRESSORS DUE TO LOW BP. LEVOPHED CURRENTLY AT 4MCG/KG/MIN AND VASOPRESSIN @ 0.04UNITS/MIN. PT HAS BEEN ON BIPAP FOR THE ENTIRE SHIFT WITH SMALL 2 MIN BREAKS FOR ORAL CARE. PT IS PLACED ON 15L OF 02 VIA OXYMIZER DURING BREAKS. AT THE START OF SHIFT PT WAS NOT TOLERATING BIPAP, PRECEDEX WAS THEN STARTED @ 0.2MCG/KG/HR, AND HAS REMAINED THE SAME DOSE T/O NIGHT. BIPAP SETTINGS ARE NOW 12/8 WITH FiO2 75%, SPO2 @ 94%. LUNG SOUNDS DIM T/O. PT BECAME MORE DROWSY T/O SHIFT, HOWEVER, SHE IS AROUSABLE TO TOUCH AND VOICE. HEPARIN @ 14UNITS/KG/HR. AT BEDSIDE, ORDERS GIVEN TO REPLACE K+ AND MAG. LOW URINE OUTPUT NOTE, URINE IS RONNIE AND CLOUDY WITH SEDIMENT. PT IS IN BILAT SWR. WILL CONTINUE TO MONITOR PT UNTIL REPORT IS GIVEN TO ONCOMING SHIFT
[2019-07-08 05:51] LABS: BAND PERCENT MAN 18 % (0-8); BASOPHILS PERCENT MAN 0 % (0-2); EOSINOPHILS PERCENT MAN 0 % (0-6); LYMPHOCYTES ABSOLUTE MAN 0.19 K/mm3 (0.84-5.20); LYMPHOCYTES PERCENT MAN 2 % (21-46); METAMYELOCYTE ABSOLUTE MAN 0.19 K/mm3 (0.00-0.00); METAMYELOCYTE PERCENT MAN 2 % (0-0); MONOCYTES ABSOLUTE MAN 0.19 K/mm3 (0.16-1.47); MONOCYTES PERCENT MAN 2 % (4-13); NEUTROPHILS ABSOLUTE MAN 9.01 K/mm3 (1.96-9.15); SEG NEUTROPHILS PERCENT MAN 76 % (41-73); TOTAL CELLS COUNTED 100
--- NOTE | 2019-07-08 06:50 | NUR ---
LEVOPHED TURNED DOWN TO 2MCG/KG/MIN AND VASOPRESSIN ON SB, DUE TO MAP ABOVE 80 AND SBP OF 130
--- NOTE | 2019-07-08 07:44 | NUR ---
ASSSESSMENT- PT SEDATED WITH PRECEDEX GTT AT 0.2 MCG/KG/HR. AWAKENS EASILY TO NAME, ABLE TO MOUTH WORDS, FOLLOWS DIRECTIONS, BACK TO SLEEP WHEN UNDISTURBED, CALM. TOLERATING BIPAP MASK, SETTINGS 03/30. LUNGS CLEAR, NO COUGH. SATURATIONS MAINTAINING. APICAL IRREGULAR, INCREASED LEVOPHED FOR BP SUPPORT TO 4 MCG/MIN. IV D5 WITH BICARB AT 75 CC/HR, HEPARIN GTT AT 14 UNITS/KG/HR VIA DIMPLE PICC, SITE DI. UO VIA MADRIGAL MINIMAL AMOUNT. REPOSITIONED. BILATERAL WRIST RESTRAINTS REMOVED, NOT PULLING AT LINES. HOB ELEVATED.
--- NOTE | 2019-07-08 09:36 | NUR ---
HYPOTENSIVE. NEEDING TO INCREASE LEVOPHED, TITRATED UP TO 16 MCG/MIN. DR. COOPER HERE-UPDATED. PT AWAKE, ABLE TO ANSWER BRIEF QUESTIONS. DENIES SOB. COLOR PALE. VASOPRESSIN RESTARTED. RIGHT PICC INTACT. PRECEDEX TITRATED OFF. PT COOPERATIVE, CALM. NOT PULLING AT LINES.
--- NOTE | 2019-07-08 13:03 | NUR ---
PT RESTING COMFORTABLY. ABLE TO TOLERATE BIPAP. BATH DONE-ABLE TO ASSIST WITH TURNING, FATIGUES VERY QUICKLY. BP IMPROVED WITH VASOPRESSIN. LEVOPHED TITRATED TO 4 MCG/MIN. UO LOW
--- NOTE | 2019-07-08 16:27 | NUR ---
BOLUS INFUSED, UO REMAINS LOW. C/O SORE THROAT. CHANGED TO HIGH-FLOW OXYGEN. LOZENGE GIVEN. QUICKLY BECAME DISTRESSED, NEEDED TO HAVE BM. REPOSITIONED, INCREASED WOB, PALE, TACHY 100'S. CHANGED BACK TO BIPAP WITH IMPROVEMENT.
--- NOTE | 2019-07-08 18:01 | NUR ---
PT STILL WITH INCREASED WOB EFFORT. DIFFICULTY READING A CONSISTENT SATURATION. SBP 90'S WITH VASOPRESSIN, D5 BICARB AT 50 CC/HR, HEPARIN GTT AT 14 UNITS/KG/HR, NS TKO. RIGHT ARM PICC INTACT. MORE RESTLESS, WILL RESTART PRECEDEX
--- NOTE | 2019-07-08 18:44 | NUR ---
DR. COOPER AT BEDSIDE. PT RESTLESS, POOR PERFUSION, FEET DISCOLORED, DIFFICULTY OBTAINING SATURATIONS. PT WITH INCREASED EFFORT TO BREATHE. SEDATED WTIH PROPOFOL AND INTUBATED WITHOUT DIFFICULTY, BREATH SOUNDS BILATERALLY, COLOR CHANGE WITH C02 MONITOR. 22 VEDA 8.0 ETT. HYPOTENSIVE, LEVOPHED STARTED AT 2 MCG/MIN, PRECEDEX OFF, PROPOFOL GTT INITIATED AFTER INTUBATION FOR RESTLESSNESS. BILATERAL WRIST RESTRAINTS TO PROTECT TUBE. VENT SETTING AC 16 TV 325 PEEP 5 100%, FREQUENCY 26 BPM. UO REMAINS POOR. 24 HOUR URINE COLLECTION. OGT PLACED WITH AIR BOLUS HEARD OVER ABDOMEN. AWAITING XRAY.
[2019-07-08 19:38] LABS: BASOPHILS ABSOLUTE AUTO 0.02 K/mm3 (0.00-0.23); BASOPHILS PERCENT AUTO 0 % (0-2); Hematocrit 26.6 % (33.0-51.0); Hemoglobin 7.9 g/dL (11.5-16.0); LYMPHOCYTES ABSOLUTE AUTO 0.08 K/mm3 (0.84-5.20); LYMPHOCYTES PERCENT AUTO 1 % (21-46); MONOCYTES ABSOLUTE AUTO 0.23 K/mm3 (0.16-1.47); MONOCYTES PERCENT AUTO 2 % (4-13); Mean Corpuscular HGB 22.6 pg (26.0-34.0); Mean Corpuscular HGB Conc 29.7 g/dL (31.5-36.5); Mean Corpuscular Volume 76 fL (80-100); Mean Platelet Volume 9.8 fL (9.1-12.4); NRBC Auto 2.1 /100 WBC (0.0-0.2); Platelet Count 280 K/mm3 (150-400); RDW Coefficient Variation 21.2 % (11.7-14.2); RDW Standard Deviation 57.5 fL (35.1-46.3); White Blood Cell Count 9.67 K/mm3 (4.00-11.30)
[2019-07-08 19:39] LABS: EOSINOPHILS PERCENT AUTO 0 % (0-6); IMMATURE GRAN ABSOLUTE AUTO 0.12 K/mm3 (0.00-0.10); IMMATURE GRAN PERCENT AUTO 1 % (0-1); NEUTROPHILS ABSOLUTE AUTO 9.22 K/mm3 (1.96-9.15); NEUTROPHILS PERCENT AUTO 95 % (41-73)
[2019-07-08 20:16] LABS: Albumin, Blood 1.4 g/dL (3.4-5.0); Albumin/Globulin Ratio 0.5 (0.8-1.8); Bilirubin, Total 0.8 mg/dL (0.1-1.0); Bun/Creatinine Ratio 13.1 (12.0-20.0); Calcium, Blood 7.3 mg/dL (8.5-10.1); Creatinine, Blood 3.05 mg/dL (0.40-1.00); Globulin, Blood 2.8 g/dL (2.2-4.0); Magnesium, Blood 1.8 mg/dL (1.6-2.4); Phosphorus, Blood 4.6 mg/dL (2.5-4.9); Potassium, Blood 3.7 mmol/L (3.5-5.5); Total Protein, Blood 4.2 g/dL (6.4-8.2)
[2019-07-08 20:17] LABS: PCO2 Arterial 49.8 mmHg (35-45); PO2 Arterial 62.1 mmHg (80-100); pH Blood Arterial 7.21 (7.35-7.45)
[2019-07-08 22:23] LABS: Troponin I 0.412 ng/mL (0.000-0.040)
[2019-07-08 23:30] LABS: PO2 Arterial 56.6 mmHg (80-100)
--- NOTE | 2019-07-09 01:44 | NUR ---
ASSUMED CARE OF PT AT 1915, REPORT RCV'D FROM MARIANNA MCFARLANE. AT START OF SHIFT PT INTUBATED WITH VENT SETTINGS AC 16/325/5/100%, O2 SATS IN LOW 80'S, UNABLE TO GET A GOOD READING D/T PT'S POOR PERFUSION. SEDATED ON PROPOFOL 25 MCG/KG/MIN. SODIUM BICARB @50 ML/HR, 1L LR BOLUS INFUSING, HEPARIN AT 14 U/KG/HR (49 KG DOSE WT). PT HYPOTENSIVE, VASOPRESSIN @0.04 U/MIN, LEVOPHED 15 MCG/MIN. PT FEBRILE WITH TMAX 100.7. PT OPENS EYES TO VERBAL STIMULI, FAILS TO FOLLOW COMMANDS. PT'S EXTREMETIES MOTTLED, COOL TO THE TOUCH. CARDIAC RHYTHM AFLUTTER WITH HR IN LOW 10'S. 24 HOUR URINE BEING COLLECTED. PT IN AIRBORNE PRECAUTIONS D/T R/O COVID-19. 1944- PROPOFOL PLACED ON STANDBY D/T CONTINUED HYPOTENSION. 2099- NEOSYNEPRHINE STARTED @100 MCG/MIN, TITRATED NEEDED TO 200 MCG/MIN WITH SLIGHT IMPROVEMENT IN PT'S BP. 2127- PT DISPLAYS TORSADES CARDIAC RHYTHM. CODE CALLED, CPR INITIATED UNABLE TO FIND PULSE. COMPRESSIONS CONTINUED UNTIL 2133 PULSE LOCATED, WIDE COMPLEX QRS. PT'S PUPILS UNEQUAL- PT TOO UNSTABLE TO TRANSPORT TO CT FOR HEAD CT. DR. COOPER CONTACTED. 2199: DR. COOPER AT BEDSIDE TO ASSESS PT. ARTLINE PLACED FOR MORE ACCURATE BP READINGS. 1 U PRBC STARTED. FAMILY CONTACTED AND UPDATED WITH PT'S STATUS. TO COME TO HOSPITAL. 2229: AT BEDSIDE. UPDATED BY DR. COOPER AND NURSING STAFF REGARDING PT'S MEDICAL CONDITION AND OUTLOOK. DISCUSSED COMFORT CARE OPTIONS REQUESTS PT REMAIN FULL CODE. 07/09/2019 0002: PT LAILA, CODE CALLED. PT ASYSTOLE 0003, COMPRESSIONS STARTED. 1 MG EPINEPHRINE GIVEN. PT DISPLAYING SEIZURE ACTIVITY. DR. GUTIERRES AT BEDSIDE SPEAKING WITH REGARDING PT'S PROGNOSIS. ORDER TO STOP COMPRESSIONS, TOD 0006. PT'S DAUGHTER CONTACTED, WILL COME TO HOSPITAL TO DESKTOP ENGINEER PT'S . [facility] CONTACTED PER FAMILY REQUEST.
--- NOTE | 2019-07-10 12:08 | NUR ---
CALL TO PATIENT'S SPOUSE CALLED, AT THE REQUEST OF DR COOPER TO LET MEREDITH KNOW THAT PATIENT'S COIVID 19 RESULTS RETURNED NEGATIVE. HE IS AWARE AND WILL LET OTHER FAMILY KNOW.
== END 2019-07-09 00:06 | DRG 871 ==
LOC: ER 07:01 → ICUE 07:02 → ICUW 11:10
PROVIDERS: Emergency Medicine; Internal Medicine Critical Care Medicine; Internal Medicine Nephrology; Pharmacist; ADMIT Hospitalist
PROC: 0BH18EZ Insertion of Endotracheal Airway into Trachea, Via Natural or Artificial Opening Endoscopic (ICD-10-PCS; principal; 2019-07-08)
PROC: 5A1935Z Respiratory Ventilation, Less than 24 Consecutive Hours (ICD-10-PCS; 2019-07-08)
PROC: 04HY32Z Insertion of Monitoring Device into Lower Artery, Percutaneous Approach (ICD-10-PCS; 2019-07-08)
DX: A40.3 Sepsis due to Streptococcus pneumoniae (principal); R65.21 Severe sepsis with septic shock; N17.0 Acute kidney failure with tubular necrosis; J96.91 Respiratory failure, unspecified with hypoxia; J13 Pneumonia due to Streptococcus pneumoniae; I42.9 Cardiomyopathy, unspecified; I13.0 Hypertensive heart and chronic kidney disease with heart failure and stage 1 through stage 4 chronic kidney disease, or unspecified chronic kidney disease; I50.32 Chronic diastolic (congestive) heart failure; E87.2 Acidosis; R29.6 Repeated falls; J43.9 Emphysema, unspecified; E87.5 Hyperkalemia; I25.10 Atherosclerotic heart disease of native coronary artery without angina pectoris; Z87.891 Personal history of nicotine dependence; I34.0 Nonrheumatic mitral (valve) insufficiency; I27.20 Pulmonary hypertension, unspecified; I35.0 Nonrheumatic aortic (valve) stenosis; E78.5 Hyperlipidemia, unspecified; I48.0 Paroxysmal atrial fibrillation; N18.3 Chronic kidney disease, stage 3 (moderate); E87.6 Hypokalemia; E88.09 Other disorders of plasma-protein metabolism, not elsewhere classified; E86.1 Hypovolemia; D64.9 Anemia, unspecified; Z95.1 Presence of aortocoronary bypass graft; Z95.2 Presence of prosthetic heart valve; Z99.81 Dependence on supplemental oxygen; Z78.1 Physical restraint status
CPT/HCPCS: 0099U; 31500; 31720; 36415; 36430; 36569; 36600; 51702; 71045; 71250; 76700; 80048; 80053; 80202; 81001; 82330; 82803; 83605; 83735; 84100; 84132; 84145; 84484; 85025; 85610; 85730; 86850; 86900; 86901; 86923; 87040; 87077; 87086; 87186; 87449; 92950; 93005; 93010; 93306; 94002; 94640; 94660; 96361; 96365; 96367; 99285-25; C1751; J0456; J0696; J0881; J1644; J1956; J2370; J2704; J3370; J3475; J3480; J7030; J7040; J7050; J7060; J7070; J7120; P9016; U0001